=== PATIENT | female | born 1995 | race Hispanic/Latino ===

== ENCOUNTER 2019-01-17 16:58 | Emergency (ER) | payer OTHER ==
[2019-01-17 17:12] VITALS: RESP 18
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
[2019-01-17 20:54] VITALS: BP 118/79; PULSE 77; TEMP 97.7; O2SAT 99
--- NOTE | 2019-01-18 08:48 | RAD ---
Date of service: 01/17/2019 PROCEDURE: Left Knee Radiographs. HISTORY: Pain. COMPARISON: None. TECHNIQUE: 2 views obtained. FINDINGS: BONES: Normal. No fracture. JOINTS: Normal. No osteoarthritis. JOINT EFFUSION: None. OTHER FINDINGS: None. IMPRESSION: Normal radiographs of the left knee.
== END 2019-01-17 19:50 | disposition home or self-care (01) ==
LOC: ED 16:58
DX: S83.92XA Sprain of unspecified site of left knee, initial encounter (principal); W01.198A Fall on same level from slipping, tripping and stumbling with subsequent striking against other object, initial encounter